=== PATIENT | female | born 1965 | race Caucasian/White ===

== ENCOUNTER 2023-04-18 10:34 | Emergency (ER) | payer BC, SELFPAY ==
[2023-04-18 10:45] VITALS: BP 141/90; PULSE 85; RESP 18; TEMP 36.7; O2SAT 98; BMI 21.4
--- NOTE | 2023-04-18 10:56 | EXP.UTC ---
Discharge Plan Referrals Follow up/Referrals: Ahmet Khan [Primary Care Provider] - See instructions Activity Restrictions/Add. Instructions Additional Instructions/Restrictions: *Monitor Temp, Over the counter Motrin or Tylenol as directed/as needed Tylenol every 4 hours and Motrin every 6 hours (as long as your family doctor has told you that you can take it) for fever or pain. and straight to ER if unable to lower temp less than 101.0 after medication given Make sure to drink plenty of fluids *Sleep elevated *Humidifier/Vaporizer Follow up IMMEDIATELY for new or worsening symptoms or no Noticeable improvement over the next 48-72 hours. 911 for difficulty breathing or swallowing You were tested for today for COVID19 your test result should be back in the next 24 hours Your results will be available for viewing on your [facility] if you are positive you will need to Quarantine for 5 days Clinical Impressions Clinical Impression: Encounter for laboratory testing for COVID-19 virus Stand Alone Forms Stand Alone Forms: Work/School Release Instructions Patient Instructions: COVID-19 Viral Test, DI for COVID-19 (Suspected or Confirmed ) Discharge ED Provider: Tanisha Duncan [facility] HPI General Stated complaint: home covid test/positive, achey,headache Mode of Arrival: Ambulatory Source of Information: Patient Limitations: No Limitations Time Seen by Provider: 04/18/23 10:56 Description of Symptoms (Recalled from Triage Doc. by RN): PATIENT C/O HEADACHE, RUNNY NOSE, AND COUGH X 3 DAYS. REPORTS A POSITIVE AT HOME COVID TEST BUT NEEDS PCR FOR WORK HEENT Symptoms (Recalled from RN notes): Yes Resp Symptoms (Recalled from RN notes): Yes Skin Symptoms (Recalled from RN notes): No MS Symptoms (Recalled from RN notes): No Functional Status (Recalled from RN notes): WNL History of Present Illness Provider Complaint: Patient states that she has been having headache, runny nose and feeling achy all over for the last 3 days States that she took a home test and it was positive but had to come in and get a PCR test for work Related Data Allergies Allergy/AdvReac Type Severity Reaction Status Date / Time No Known Allergies Allergy Verified 04/18/23 10:55 Worker's Comp Is this a Worker's Comp case?: No [facility] Disclaimer: The information contained in this section may have been updated after the patient was seen, as this information can be updated by other users. Medical History (Updated 04/18/23 @ 11:00 by Tanisha Duncan APRN) Anxiety GERD (gastroesophageal reflux disease) Thyroid disease Surgical History (Updated 04/18/23 @ 10:56 by Alisha Walker RN) History of tubal ligation Social History Smoking Status: Unknown if ever smoked alcohol intake: never current occupational status: employed Travel in the last 8 weeks: None ROS Obtained: Yes All systems reviewed & no additional complaints except as documented and Yes Systems reviewed as appropriate & no additional complaints except as documented Constitutional Constitutional: Reports system reviewed and no additional complaints, except as documented, Reports as per HPI, Reports body ache, Reports chills and Reports headache(s) ENT Ears, Nose, Mouth, and Throat: Reports system reviewed and no additional complaints, except as documented, Reports as per HPI, Reports headache(s), Reports nasal congestion and Reports nasal discharge Cardiovascular Cardiovascular: Reports system reviewed and no additional complaints, except as documented and Reports as per HPI Respiratory Respiratory: Reports system reviewed and no additional complaints, except as documented and Reports as per HPI Gastrointestinal Gastrointestingal: Reports system reviewed and no additional complaints, except as documented and as per HPI Genitourinary Female Genitourinary: Reports system reviewed and no additional complaints, except as documented and Reports as per HPI
[2023-04-18 10:57] VITALS: BP 141/90; PULSE 85; RESP 18; TEMP 36.7; O2SAT 98
== END 2023-04-18 11:00 | disposition home or self-care (01) ==
LOC: UTC 10:40
PROVIDERS: Emergency Provider Nurse Practitioner; PCP Family Medicine
DX: U07.1 COVID-19 (principal); K21.9 Gastro-esophageal reflux disease without esophagitis; F41.9 Anxiety disorder, unspecified; E03.9 Hypothyroidism, unspecified
CPT/HCPCS: 87635; 99203; 99212; G0463

== ENCOUNTER 2023-06-22 17:41 | Emergency (ER) | payer BC, SELFPAY ==
[2023-06-22 18:05] VITALS: BP 157/95; PULSE 75; RESP 20; TEMP 36.6; O2SAT 96; BMI 21.2
--- NOTE | 2023-06-22 18:44 | EXP.UTC ---
Discharge Plan Disposition Patient Disposition: Home, Self-Care Condition: Good Prescriptions Prescriptions: New metronidazole 500 mg tablet 500 mg PO Q12H 7 Days Qty: 14 0RF Referrals Follow up/Referrals: Ahmet Khan [Primary Care Provider] - See instructions Activity Restrictions/Add. Instructions Additional Instructions/Restrictions: Take medication as prescribed FOllow up with your OBGYN as we discussed for further evaluation You test should be back in the next 5-7 days if anything on it is positive you will need to seek treatment Return if needed Follow up with your Family Doctor if needed Clinical Impressions Clinical Impression: Bacterial vaginosis Instructions Patient Instructions: DI for Bacterial Vaginosis, Metronidazole Discharge ED Provider: Tanisha Duncan [facility] HPI General Stated complaint: vaginal discharge Mode of Arrival: Ambulatory Source of Information: Patient Limitations: No Limitations Time Seen by Provider: 06/22/23 18:46 Description of Symptoms (Recalled from Triage Doc. by RN): PATIENT C/O ODOR AND GREEN DRAINAGE TO VAGINAL AREA SINCE YESTERDAY HEENT Symptoms (Recalled from RN notes): No Resp Symptoms (Recalled from RN notes): No Skin Symptoms (Recalled from RN notes): No MS Symptoms (Recalled from RN notes): No Functional Status (Recalled from RN notes): WNL History of Present Illness Provider Complaint: Patient states that she started yesterday with copious amounts of thin green vaginal discharge with strong fishy odor states that she did recently get a new sexual partner and also wants tested for Chlamydia and Gonnorhea Related Data Previous Rx's Medication Instructions Recorded metronidazole 500 mg tablet 500 mg PO Q12H 7 days #14 tabs 06/22/23 Allergies Allergy/AdvReac Type Severity Reaction Status Date / Time No Known Allergies Allergy Verified 04/18/23 10:55 Worker's Comp Is this a Worker's Comp case?: No [facility] Disclaimer: The information contained in this section may have been updated after the patient was seen, as this information can be updated by other users. Medical History (Updated 06/22/23 @ 18:53 by Tanisha Duncan APRN) Anxiety GERD (gastroesophageal reflux disease) Thyroid disease Surgical History (Updated 04/18/23 @ 10:56 by Alisha Walker RN) History of tubal ligation Social History (Updated 04/18/23 @ 11:00 by Belkys Duncan, [employer]) Smoking Status: Unknown if ever smoked alcohol intake: never current occupational status: employed Travel in the last 8 weeks: None ROS Obtained: Yes All systems reviewed & no additional complaints except as documented and Yes Systems reviewed as appropriate & no additional complaints except as documented Constitutional Constitutional: Reports system reviewed and no additional complaints, except as documented and Reports as per HPI ENT Ears, Nose, Mouth, and Throat: Reports system reviewed and no additional complaints, except as documented and Reports as per HPI Cardiovascular Cardiovascular: Reports system reviewed and no additional complaints, except as documented and Reports as per HPI Respiratory Respiratory: Reports system reviewed and no additional complaints, except as documented and Reports as per HPI Gastrointestinal Gastrointestingal: Reports system reviewed and no additional complaints, except as documented and as per HPI Genitourinary Female Genitourinary: Reports system reviewed and no additional complaints, except as documented, Reports as per HPI and Reports vaginal discharge (thin, watery greenish discharge with strong odor) Physical Exam General General appearance: alert and in no apparent distress Respiratory Respiratory exam: Present normal lung sounds bilaterally; Absent respiratory distress or wheezes Cardiovascular Cardiovascular exam: Present regular rate, normal rhythm and normal heart sounds Abdominal Exam Abdominal exam: Present soft and normal bowel sounds;
[2023-06-22 18:59] VITALS: BP 157/95; PULSE 75; RESP 20; TEMP 36.6; O2SAT 96
[2023-06-26 22:39] LABS: Neisseria gonorrhoeae, NAA Negative (Negative)
== END 2023-06-22 19:04 | disposition home or self-care (01) ==
PROVIDERS: Emergency Provider Nurse Practitioner; PCP Family Medicine
DX: N76.0 Acute vaginitis (principal); K21.9 Gastro-esophageal reflux disease without esophagitis; E03.9 Hypothyroidism, unspecified
CPT/HCPCS: 87491; 87591; 99212; 99214; G0463

== ENCOUNTER 2024-05-26 12:52 | Emergency (ER) | payer BC, SELFPAY ==
--- NOTE | 2024-05-26 12:50 | ECG_ITS ---
APPROVED REPORT Exam: Resting ECG HR:83 bpm ECG Measurements Heart Rate 83 AXES GA 184 P 62 QRSd 94 QRS 15 QT 340 T 51 QTc 379 Conclusion SINUS RHYTHM NORMAL ECG Electronically signed by : ALEX RICCI, 05/26/2024 15:49:16
[2024-05-26 12:52] VITALS: BP 142/78; PULSE 71; RESP 18; TEMP 36.7; O2SAT 95; BMI 24.3
[2024-05-26 13:01] VITALS: BP 142/78; PULSE 77; RESP 11; O2SAT 96
[2024-05-26 13:30] VITALS: BP 120/76; PULSE 73; RESP 14; O2SAT 95
--- NOTE | 2024-05-26 13:43 | PC.NURSE ---
DR RICCI AT BEDSIDE
[2024-05-26 14:00] VITALS: BP 157/106; PULSE 76; RESP 14; O2SAT 95
--- NOTE | 2024-05-26 14:02 | ED_ITS ---
Discharge Plan Disposition Patient Disposition: Home, Self-Care Condition: Good Prescriptions Prescriptions: No Action metronidazole 500 mg tablet 500 mg PO Q12H 7 Days Qty: 14 0RF Referrals Follow up/Referrals: Ahmet Khan [Primary Care Provider] - See instructions Activity Restrictions/Add. Instructions Additional Instructions/Restrictions: You were evaluated in the emergency department today. Please follow-up very closely with your primary care provider over the next 48 hours. Return to the emergency department for new or worsening symptoms Clinical Impressions Clinical Impression: Panic attacks Stand Alone Forms Stand Alone Forms: Work/School Release Instructions Patient Instructions: DI for Atypical Chest Pain Print Language Print Language: Gu[place]ian Discharge ED Provider: Linda Hewitt [facility] General Chief Complaint: Chest Pain Stated Complaint: Chest Pain Time Seen by Provider: 05/26/24 13:12 Mode of Arrival: Ambulatory Limitations: No Limitations Description of Symptoms (Recalled from ER Triage Doc. by RN): PT REPORTS CHEST PAIN ONGOING SINCE MONDAY. PT REPORTS FEELING LIKE AN ANXIETY ATTACK PAIN INTERMITTENT. TODAY FEELING LIKE MIDSTERNAL BURNING. PAIN RADIATES TO NECK, ACROSS SHOULDERS. OCCASIONAL SHORTNESS OF BREATH. CONTINUES TO RELATE ALL SYMPTOMS TO PREVIOUS PANIC ATTACKS WOULD LIKE TO DECLINE IV AT THIS TIME History of Present Illness HPI narrative: This patient is a 59-year-old female with a history of thyroid disease, GERD, anxiety, panic attacks, and upper back pain presenting to the emergency department for evaluation with concern for multiple panic attacks over the last several days. She states that it has been intermittent and nothing seems to bring it on or make it worse. Today, she started having midsternal burning radiating to her neck and across her shoulders, which she was not sure if could be related to her back or if she could have something else going on. She notes that she just wanted to come in to get an EKG to make sure is not something more serious since she keeps having episodes like this more frequent than her usual panic attacks. Related Data Previous Rx's ?Medication ?Instructions ?Recorded metronidazole 500 mg tablet 500 mg PO Q12H 7 days #14 tabs 06/22/23 Allergies Allergy/AdvReac Type Severity Reaction Status Date / Time No Known Allergies Allergy Verified 04/18/23 10:55 [facility] Disclaimer: The information contained in this section may have been updated after the patient was seen, as this information can be updated by other users. Medical History Thyroid disease GERD (gastroesophageal reflux disease) Anxiety Surgical History History of tubal ligation Social History Smoking Status: Never smoker alcohol intake: never current occupational status: employed Travel in the last 8 weeks: None ROS Obtained: Yes All systems reviewed & no additional complaints except as documented Physical Exam General General appearance: alert and in no apparent distress Head Head exam: atraumatic and normocephalic Eye Eye exam: Present normal appearance, PERRL and EOMI ENT ENT exam: Present normal exam, normal oropharynx, mucous membranes moist and normal external ear exam Neck Neck exam: Present normal inspection, full ROM and trachea midline; Absent tenderness Chest Chest inspection: Present normal inspection and symmetric chest wall rise; Absent tenderness Respiratory Respiratory exam: Present normal lung sounds bilaterally; Absent respiratory distress, wheezes, stridor or accessory muscle use Cardiovascular Cardiovascular exam: Present regular rate and normal rhythm Abdominal Exam Abdominal exam: Present soft; Absent distention, tenderness or guarding Extremities Exam Extremities exam: Present normal inspection, full ROM and normal capillary refill; Absent tenderness or edema Back Exam Back exam: Present normal inspection and full ROM; Absent tenderness Neurological Exam Neurological exam: Present alert, oriented X3, CN II-XII intact and normal gait; Absent motor sensory deficit Psychiatric Psychiatric exam: Present normal affect and normal mood Skin Skin exam: Present warm and dry HEART Score HEART Score HEART Score assessment performed?: Yes History (anamnesis): Slightly suspicious ECG: Normal Age: 45-65 years Risk factors: No known risk factors Troponin: </= normal limit HEART Score: 1 Critical Care Critical Care Time Critical Care Time: No Medical Decision Making Yan Inquiry Pt receiving controlled substance: No Vital Signs Vital Signs: 05/26/24 12:52 05/26/24 13:01 05/26/24 13:30 Temperature 98.0 F Temperature Source Oral Pulse Rate 77 73 Pulse Rate [Apical] 71 Respiratory Rate 18 11 L 14 Blood Pressure 142/78 H 120/76 Blood Pressure [Right Arm] 142/78 H Blood Pressure Mean 91 Blood Pressure Mean [Right Arm] 99 Blood Pressure Source [Right Arm] Automatic Cuff Blood Pressure Position [Right Arm] Sitting 02 Sat by Pulse Oximetry 95 96 95 Oxygen Delivery Method Room Air Room Air 05/26/24 14:00 05/26/24 14:30 Temperature Temperature Source Pulse Rate 76 71 Pulse Rate [Apical] Respiratory Rate 14 13 Blood Pressure 157/106 H Blood Pressure [Right Arm] Blood Pressure Mean 116 Blood Pressure Mean [Right Arm] Blood Pressure Source [Right Arm] Blood Pressure Position [Right Arm] 02 Sat by Pulse Oximetry 95 97 Oxygen Delivery Method Room Air Room Air Lab Data Labs: Lab Results 05/26/24 14:02: WBC 4.7 L, RBC 5.02, Hgb 15.0, Hct 44.1, MCV 87.9, MCH 29.8, MCHC 33.9, RDW 13.1, Plt Count 259, MPV 7.1 L, Neut % (Auto) 56.5, Lymph % (Auto) 33.1, [place] % (Auto) 6.3, Eos % (Auto) 2.8, Baso % (Auto) 1.2, Neut # (Auto) 2.7, Lymph # (Auto) 1.6, [place] # (Auto) 0.3, Eos # (Auto) 0.1, Baso # (Auto) 0.1, D-Dimer 0.27, Sodium 141, Potassium 4.2, Chloride 108 H, Carbon Dioxide 27, Anion Gap 10.2, BUN 19 H, Creatinine 0.70, Estimated Creat Clear 84, Estimated GFR 85, Est GFR ( Amer) 103, Glucose 92, Calcium 9.2, Magnesium 2.3, Total Bilirubin 0.7, AST 35, ALT 24, Alkaline Phosphatase 63, Troponin I < 0.01, Total Protein 7.3, Albumin 4.3, Globulin 3.0, Albumin/Globulin Ratio 1.4, TSH 0.87, Thyroxine (T4) 8.5 05/26/24 14:02 05/26/24 14:02 Response Orders (Tests/Meds): ORDERS Category Date Time Status CBC w/Auto Diff [Complete Blood Count Auto Diff] Stat Lab 05/26/24 14:02 Completed CMP [Comprehensive Metabolic Panel] Stat Lab 05/26/24 14:02 Completed D-Dimer Stat Lab 05/26/24 14:02 Completed MAG [Magnesium] Stat Lab 05/26/24 14:02 Completed T4 (Thyroxine) Stat Lab 05/26/24 14:02 Completed TSH [Thyroid Stimulating Hormone] Stat Lab 05/26/24 14:02 Completed Trop I [Troponin I] Stat Lab 05/26/24 14:02 Completed Troponin I Q3H Lab 05/26/24 17:00 Ordered Troponin I Q3H Lab 05/26/24 20:00 Ordered ECG Data Tracing #1: Attestation: I reviewed this ECG and interpreted as documented below: ECG Narrative: Normal sinus rhythm with a ventricular rate of [address] changes concerning for ischemia. Normal intervals ECG initial impression date: 05/26/24 ECG initial impression time: 12:51 MDM Narrative Medical Decision Narrative: In summary, this patient is a 59-year-old female presenting to the Emergency Department for evaluation of frequent panic attacks and chest pain over the last several days. Differential diagnoses considered include but are not limited to ACS, dysrhythmia, GERD, panic attack, anxiety, musculoskeletal strain/sprain, PE. Ruling out the most morbid conditions drove assessment. It should be noted patient's history includes anxiety which is not at goal therapy. This complicates all aspects of care by increasing patient's risk for morbidity. On exam, the patient is very well-appearing. She has normal vital signs on cardiac telemetry. She denies any current symptoms at this time. Cardiopulmonary exam is reassuring. Patient does have a history of aortic root dilatation, but she declines CT angiogram at this time as she states it is been stable and she already has an appointment scheduled next week to follow this. She is agreeable to obtain labs and EKG, however. Workup included CBC, CMP, troponin, D-dimer, TSH, T4, magnesium, EKG. EKG obtained is reassuring. Labs overall are very reassuring as well with negative D-dimer, negative troponin, reassuring CBC and chemistry. Ultimately, workup and exam are very reassuring. I feel that patient has likely increased frequency of panic attacks without acute life-threatening cardiopulmonary disease. After shared decision-making with the patient, decision was made to not keep her here for second troponin, as the symptoms have been going on for several days and is unlikely to become elevated over the next few hours if it had not already been elevated. She is very low risk. Patient was given instructions to keep her close follow-up arranged with family care, strict return precautions, and she was discharged after all questions were answered
[2024-05-26 14:13] LABS: Basophils # 0.1 K/mm3 (0-0.2); Basophils % 1.2 % (0.1-2.0); Eosinophils # 0.1 K/mm3 (0.0-0.4); Eosinophils % 2.8 % (0.1-12.0); Hematocrit 44.1 % (37.0-47.0); Lymphocytes # 1.6 K/mm3 (0.7-4.5); Lymphocytes % 33.1 % (10-50); Mean Corpuscular HGB Conc 33.9 g/dL (31.8-35.4); Mean Corpuscular Hemoglobin 29.8 pg (27.0-31.2); Mean Corpuscular Volume 87.9 fl (81-99); Mean Platelet Volume 7.1 fl (7.4-10.4); Monocytes # 0.3 K/mm3 (0.1-1.0); Monocytes % 6.3 % (1.7-9.3); Neutrophils # 2.7 K/mm3 (1.8-7.8); Neutrophils % 56.5 % (37.0-80.0); Platelet Count 259 K/mm3 (142-424); Red Blood Count 5.02 M/mm3 (4.20-5.40); Red Cell Distribution Width 13.1 % (11.5-17.5); White Blood Count 4.7 K/mm3 (4.8-10.8)
[2024-05-26 14:25] LABS: Alanine Aminotransferase 24 U/L (12-78); Albumin Level 4.3 g/dl (3.5-5.0); Albumin/Globulin Ratio 1.4 (1.1-1.8); Alkaline Phosphatase 63 U/L (38-126); Anion Gap 10.2 mEq/L (5-15); Aspartate Amino Transferase 35 U/L (14-36); Bilirubin,Total 0.7 mg/dl (0.2-1.3); Blood Urea Nitrogen 19 mg/dl (7-17); Calcium 9.2 mg/dl (8.4-10.2); Carbon Dioxide 27 mmol/L (22.0-30.0); Chloride 108 mmol/L (98-107); Creatinine Clearance Estimated 84 mL/min (50-200); Estimated Glomerular Filt Rate 85 ml/min (>60); GFR (African American) 103 ML/MIN (>60); Glucose 92 mg/dl (74-100); Magnesium 2.3 mg/dl (1.6-2.3); Potassium 4.2 mmoL/L (3.5-5.1); Sodium 141 mmol/L (136-145); Total Protein,Serum 7.3 g/dl (6.3-8.2)
[2024-05-26 14:29] LABS: D-Dimer 0.27 ug/mL (0.0-0.5)
[2024-05-26 14:30] VITALS: PULSE 71; RESP 13; O2SAT 97
[2024-05-26 14:43] LABS: T4 (Thyroxine) 8.5 ug/dl (5.53-11.0)
[2024-05-26 14:55] LABS: Troponin I < 0.01 ng/ml (0.00-0.034)
[2024-05-26 14:57] LABS: Thyroid Stimulating Hormone 0.87 uIU/mL (0.465-4.68)
[2024-05-26 15:31] VITALS: BP 145/90; PULSE 77; RESP 16; TEMP 36.7; O2SAT 97
== END 2024-05-26 15:31 | disposition home or self-care (01) ==
PROVIDERS: Emergency Provider Emergency Medicine; PCP Family Medicine
DX: F41.9 Anxiety disorder, unspecified (principal)
CPT/HCPCS: 80050; 80053; 83735; 84436; 84443; 84484; 85025; 85378; 93005; 99284